=== PATIENT | male | born 1950 | race American Indian/Alaskan Native ===

== ENCOUNTER 2018-12-15 11:06 | Observation (INO) ==
[2018-12-15] MEDS ORDERED: Isovue-370 500 ML BOTTLE IVP ONE (11:52)
[2018-12-15 12:09] LABS: Basophils % 0.3 %; Eosinophils # 0.1 K/mcL (0.0-0.6); Eosinophils % 1.3 %; Hematocrit 40.1 % (37.5-50.1); Hemoglobin 13.5 g/dL (12.9-16.9); Immature Granulocytes % 0.3 % (0-4); Lymphocytes # 1.8 K/mcL (0.6-4.6); Mean Corpuscular HGB Conc 33.7 g/dL (31.6-35.5); Mean Corpuscular Hemoglobin 30.1 pg (28.0-33.3); Mean Corpuscular Volume 89.5 fL (83.0-100.0); Mean Platelet Volume 10.9 fL (9.4-12.4); Monocytes # 0.6 K/mcL (0.0-1.3); Monocytes % 6.9 %; Neutrophils # 6.2 K/mcL (1.6-8.9); Platelet Count 198 K/mcL (140-400); Red Blood Count 4.48 M/mcL (4.19-5.50); Red Cell Distribution Width 12.7 % (11.5-14.5); Segmented Neutrophils % 71.2 %; White Blood Count 8.7 K/mcL (4.3-11.1)
[2018-12-15 12:16] LABS: BUN/Creatinine Ratio 24 (6-26); Blood Urea Nitrogen 28 mg/dL (8-23); Calcium 9.8 mg/dL (8.6-10.3); Carbon Dioxide 26 mEq/L (23-29); Chloride 102 mEq/L (98-107); Glucose 198 mg/dL (70-105); Osmolality,Calculated 291 (280-300); Potassium 3.9 mEq/L (3.5-5.1); Sodium 135 mEq/L (136-145); eGFR For African Americans > 60 (> 60); eGFR For Non-African Americans > 60 (> 60)
[2018-12-15] MEDS ORDERED: Clindamycin 600 MG/50 ML 600 MG/50 ML IV.SOLN IVPB ONE (14:34)
[2018-12-15] MEDS ORDERED: Naloxone 0.4 MG/ML INJ IVP PRN ×2 (15:37→19:18)
[2018-12-15] MEDS ORDERED: traMADol 50 MG TABLET PO PRN ×2 (15:37→19:18)
[2018-12-15] MEDS ORDERED: Ondansetron ODT 4 MG TAB.RAPDIS SL PRN ×2 (15:37→19:18)
[2018-12-15] MEDS ORDERED: 0.9 % Sodium Chloride 1,000 ML IVC SCH (15:45)
[2018-12-15] MEDS ORDERED: levoFLOXacin 750 MG/150 ML 750 MG/150 ML BAG IVPB SCH (15:45)
[2018-12-15] MEDS ORDERED: MetroNIDAZOLE 500 MG/100 ML 500 MG/100 ML BAG IVPB SCH (16:00)
[2018-12-15] MEDS ORDERED: Dextrose Gel 15 GM/37.5 ML TUBE PO PRN ×4 (16:34→19:18)
[2018-12-15] MEDS ORDERED: *HR* Dextrose 50 % in Water (Syg) 50 ML SYRINGE IVP PRN ×2 (16:34→19:18)
[2018-12-15] MEDS ORDERED: D5% in Water 1,000 ML IVC PRN ×2 (16:34→19:18)
[2018-12-15] MEDS ORDERED: Ondansetron 4 MG/2 ML VIAL ONE (16:53)
[2018-12-15] MEDS ORDERED: *HR* Succinylcholine 200 MG/10 ML VIAL IVP ONE (16:53)
[2018-12-15] MEDS ORDERED: *HR* Propofol 200 MG/20 ML VIAL IVP ONE (16:53)
[2018-12-15] MEDS ORDERED: Lidocaine -MPF 2% 2 ML VIAL ONE (16:53)
[2018-12-15] MEDS ORDERED: *HR* FentaNYL (PF) 100 MCG/2 ML VIAL ONE (16:53)
[2018-12-15] MEDS ORDERED: Lidocaine Jelly 6ml 1 APPL/6 ML JEL.PF.APP ONE (16:58)
[2018-12-15] MEDS ORDERED: Albuterol 2.5 MG/3 ML NEBULIZER IH ONE (17:06)
[2018-12-15] MEDS ORDERED: Albuterol 2.5 MG/3 ML NEBULIZER ONE (17:09)
[2018-12-15] MEDS ORDERED: *HR* PHENYLEPHRINE 1,000 MCG/10 ML SYRINGE IVP ONE (17:36)
[2018-12-15] MEDS ORDERED: EPHEDrine 50 MG/ML VIAL ONE (17:49)
[2018-12-15] MEDS ORDERED: Insulin LISPRO 300 UNITS/3 ML VIAL SQ SCH ×3 (18:00→21:00)
[2018-12-15] MEDS ORDERED: Morphine Sulfate 2 MG/ML SYRINGE IVP PRN (18:02)
[2018-12-15] MEDS ORDERED: Ondansetron 4 MG/2 ML VIAL IVP ONE ×2 (18:02→19:18)
[2018-12-15] MEDS ORDERED: *HR* OxyCODONE Immed Rel 5 MG TABLET PO ONE (18:21)
[2018-12-15] MEDS ORDERED: Ringers Solution, Lactated 1,000 ML ONE (18:43)
[2018-12-15] MEDS: 0.9 % Sodium Chloride 1,000 ML IVC SCH (20:11)
[2018-12-15] MEDS ORDERED: 0.9 % Sodium Chloride 500 ML IVC ONE (21:26)
[2018-12-16] MEDS ORDERED: MetroNIDAZOLE 500 MG/100 ML 500 MG/100 ML BAG IVPB SCH
[2018-12-16] MEDS: 0.9 % Sodium Chloride 1,000 ML IVC SCH (02:18)
[2018-12-16 07:04] VITALS: BP 91/56
[2018-12-16] MEDS ORDERED: Aspirin Enteric Coated 81 MG Tablet PO SCH (09:00)
[2018-12-16] MEDS ORDERED: Cholecalciferol (D-3) 1,000 UNIT (25MCG) TABLET PO SCH (09:00)
[2018-12-16 10:16] LABS: Estimated Average Glucose 163 mg/dl
[2018-12-16] MEDS ORDERED: Insulin LISPRO 300 UNITS/3 ML VIAL SQ SCH ×2 (11:30)
[2018-12-16] MEDS ORDERED: levoFLOXacin 750 MG/150 ML 750 MG/150 ML BAG IVPB SCH (15:45)
== END 2018-12-16 13:54 | disposition home or self-care (01) ==
LOC: 3ANU 11:06 → EMEROOARM 11:06 → 3ANU 16:46
PROVIDERS: ADMIT Surgery; ATTEND Surgery

== ENCOUNTER 2019-11-02 17:54 | Observation (INO) ==
[2019-11-02 18:28] LABS: Basophils % 0.6 %; Eosinophils # 0.2 K/mcL (0.0-0.6); Eosinophils % 4.3 %; Hematocrit 39.1 % (37.5-50.1); Hemoglobin 12.5 g/dL (12.9-16.9); Immature Granulocytes % 0.2 % (0-4); Lymphocytes # 1.6 K/mcL (0.6-4.6); Lymphocytes % 30.1 %; Mean Corpuscular Hemoglobin 28.6 pg (28.0-33.3); Mean Corpuscular Volume 89.5 fL (83.0-100.0); Mean Platelet Volume 10.6 fL (9.4-12.4); Monocytes # 0.5 K/mcL (0.0-1.3); Monocytes % 8.7 %; Platelet Count 166 K/mcL (140-400); Red Blood Count 4.37 M/mcL (4.19-5.50); Red Cell Distribution Width 13.9 % (11.5-14.5); Segmented Neutrophils % 56.1 %; White Blood Count 5.4 K/mcL (4.3-11.1)
[2019-11-02] MEDS ORDERED: Aspirin 325 MG TABLET PO ONE (18:32)
[2019-11-02 18:52] LABS: BUN/Creatinine Ratio 20 (6-26); Blood Urea Nitrogen 18 mg/dL (8-23); Calcium 9.4 mg/dL (8.6-10.3); Carbon Dioxide 27 mEq/L (23-29); Chloride 110 mEq/L (98-107); Glucose 70 mg/dL (70-105); Osmolality,Calculated 294 (280-300); Potassium 3.6 mEq/L (3.5-5.1); Sodium 142 mEq/L (136-145); Troponin I 0.04 ng/mL (< 0.04); eGFR For African Americans > 60 (> 60); eGFR For Non-African Americans > 60 (> 60)
[2019-11-02] MEDS ORDERED: Naloxone 0.4 MG/ML INJ IVP PRN (19:59)
[2019-11-02] MEDS ORDERED: *HR* Heparin 5,000 UNIT/ML VIAL IVP ONE (20:00)
[2019-11-02] MEDS ORDERED: *HR* Heparin 5,000 UNIT/ML VIAL IVP PRN ×2 (20:00)
[2019-11-02] MEDS ORDERED: Heparin 25,000UNIT/250ML 1/2NS 25,000 UNIT/250 ML IV.SOLN IVC SCH (20:00)
[2019-11-02] MEDS ORDERED: Capsaicin 0.025% 60 GM TUBE TP PRN (20:03)
[2019-11-02 20:29] LABS: Hematocrit 39.1 % (37.5-50.1); Hemoglobin 12.1 g/dL (12.9-16.9); Mean Corpuscular HGB Conc 30.9 g/dL (31.6-35.5); Mean Corpuscular Hemoglobin 27.6 pg (28.0-33.3); Mean Corpuscular Volume 89.3 fL (83.0-100.0); Mean Platelet Volume 10.6 fL (9.4-12.4); Platelet Count 165 K/mcL (140-400); Red Blood Count 4.38 M/mcL (4.19-5.50); Red Cell Distribution Width 13.8 % (11.5-14.5); White Blood Count 6.5 K/mcL (4.3-11.1)
[2019-11-02 20:35] LABS: Heparin anti-factor XA UFH 0.71 IU/mL (0.30-0.70); INR 1.1
[2019-11-02] MEDS ORDERED: cilostazoL 100 MG TABLET PO SCH (21:00)
[2019-11-02] MEDS ORDERED: Nitroglycerin 0.4 MG TAB.SUBL SL PRN (22:03)
[2019-11-03 00:19] LABS: Adenovirus Not Detected (Not Detect); Bordetella Pertussis Not Detected (Not Detect); Chlamydophila pneumoniae Not Detected (Not Detect); Coronavirus 229E Not Detected (Not Detect); Coronavirus HKU1 Not Detected (Not Detect); Coronavirus NL63 Not Detected (Not Detect); Coronavirus OC43 Not Detected (Not Detect); Human Metapneumovirus Not Detected (Not Detect); Human Rhinovirus/Enterovirus Not Detected (Not Detect); Influenza A Subtype 2009 H1 Not Detected (Not Detect); Influenza B Not Detected (Not Detect); Mycoplasma pneumoniae Not Detected (Not Detect); Parainfluenza Virus 1 Not Detected (Not Detect); Parainfluenza Virus 2 Not Detected (Not Detect); Parainfluenza Virus 3 Not Detected (Not Detect); Parainfluenza Virus 4 Not Detected (Not Detect); Respiratory Syncytial Virus Not Detected (Not Detect); SARS-CoV-2 Not Detected (Not Detect)
[2019-11-03 01:24] VITALS: BP 120/73
[2019-11-03] MEDS ORDERED: BuPROPion SR (12 HR) 100 MG TABLET PO SCH (09:00)
[2019-11-03] MEDS ORDERED: Aspirin Enteric Coated 81 MG Tablet PO SCH (09:00)
[2019-11-03] MEDS ORDERED: Cholecalciferol (D-3) 1,000 UNIT (25MCG) TABLET PO SCH (09:00)
== END 2019-11-03 01:43 | disposition left against medical advice (07) ==
LOC: EMEROOARM 17:54 → 3BNU 17:54
PROVIDERS: ADMIT Student in an Organized Health Care Education/Training Program; ATTEND Student in an Organized Health Care Education/Training Program